=== PATIENT | female | born 1970 | race Caucasian/White ===

== ENCOUNTER 2016-11-01 15:30 | Emergency (ER) | payer MEDICAID ==
[~2016-11-01] VITALS: Ht 167.6 cm; Wt 59.0 kg
[~2016-11-01 15:30] MED LIST: MOTRIN800 MG PO; NOR10T PO; PREDNISONE20 MG PO; PROAIR HFA0.09 MG/A1 INH; ROBITUSSIN COU118 ML PO
[2016-11-01 17:04] VITALS: BP 98/62
== END 2016-11-01 20:01 | disposition home or self-care (01) ==
LOC: ED 15:30
DX: G43.909 Migraine, unspecified, not intractable, without status migrainosus (principal); T73.3XXA Exhaustion due to excessive exertion, initial encounter; X58.XXXA Exposure to other specified factors, initial encounter
CPT/HCPCS: J1200; J2765; J3490; J7030

== ENCOUNTER 2017-01-13 15:19 | Emergency (ER) | payer MEDICAID ==
[2017-01-13 15:30] VITALS: BP 113/73
== END 2017-01-13 18:06 | disposition home or self-care (01) ==
LOC: ED 15:19
DX: G44.209 Tension-type headache, unspecified, not intractable (principal); R07.9 Chest pain, unspecified; E78.00 Pure hypercholesterolemia, unspecified; Z88.2 Allergy status to sulfonamides; Z88.1 Allergy status to other antibiotic agents

== ENCOUNTER 2017-01-17 16:11 | Emergency (ER) | payer MEDICAID ==
[2017-01-17 18:07] LABS: BASOPHIL % 0.9 % (0-2); PLATELET COUNT 290 x10^3mcL (130-400); RED CELL DISTRIBUTION WIDTH 12.8 % (11.5-14.5)
[2017-01-17 18:26] LABS: CARBON DIOXIDE 30.3 mmol/L (21-32); CHLORIDE SERUM 100 mmol/L (98-107); CREATININE SERUM 0.6 mg/dL (0.6-1.0); GFR1 > 60 mL/min; GLUCOSE SERUM 114 mg/dL (74-106); POTASSIUM SERUM 3.5 mmol/L (3.5-5.1); SODIUM SERUM 136 mmol/L (136-145)
[2017-01-17 18:32] LABS: ALBUMIN 3.8 g/dL (3.4-5.0); ALKALINE PHOSPHATASE 64 U/L (46-116); ALT/SGPT 20 U/L (14-59); AST/SGOT 16 U/L (15-37); BILIRUBIN TOTAL 0.43 mg/dL (0.20-1.00)
[2017-01-17 19:40] VITALS: BP 107/69
== END 2017-01-17 19:40 | disposition home or self-care (01) ==
LOC: ED 16:11
PROVIDERS: Emergency Medicine
DX: G44.209 Tension-type headache, unspecified, not intractable (principal); J45.909 Unspecified asthma, uncomplicated; E78.00 Pure hypercholesterolemia, unspecified; Z88.2 Allergy status to sulfonamides; Z88.1 Allergy status to other antibiotic agents
CPT/HCPCS: 36415; J1170; J1200; J2765

== ENCOUNTER 2017-03-07 07:45 | Emergency (ER) | payer MEDICAID ==
[~2017-03-07] VITALS: Ht 167.6 cm; Wt 61.7 kg
[2017-03-07 08:05] VITALS: Ht 167.6 cm; Wt 61.7 kg
[2017-03-07 10:00] LABS: BASOPHIL % 0.8 % (0-2); PLATELET COUNT 248 x10^3mcL (130-400); RED CELL DISTRIBUTION WIDTH 12.7 % (11.5-14.5)
[2017-03-07 10:10] LABS: microscopic required? NO
[2017-03-07 10:24] LABS: urine erythrocyte NEGATIVE (NEGATIVE)
[2017-03-07 10:32] LABS: CALCIUM 8.8 mg/dL (8.5-10.1); CHLORIDE SERUM 101 mmol/L (98-107); CREATININE SERUM 0.6 mg/dL (0.6-1.0); GFR1 > 60 mL/min; GLUCOSE SERUM 95 mg/dL (74-106); POTASSIUM SERUM 3.6 mmol/L (3.5-5.1); SODIUM SERUM 138 mmol/L (136-145)
[2017-03-07 10:37] LABS: ALBUMIN 3.7 g/dL (3.4-5.0); ALKALINE PHOSPHATASE 73 U/L (46-116); ALT/SGPT 22 U/L (14-59); AST/SGOT 16 U/L (15-37); BILIRUBIN TOTAL 0.4 mg/dL (0.20-1.00); CHOLESTEROL 183 mg/dL (<200); CHOLESTEROL/HDL RATIO 3.6; HDL CHOLESTEROL 51 mg/dL (40-60); LIPASE 148 IU/L (73-393); TOTAL PROTEIN, SERUM 7.4 g/dL (6.4-8.2); TRIGLYCERIDES 70 mg/dL (<150)
[2017-03-07 11:01] LABS: T3 TOTAL 1.25 ng/mL
[2017-03-07 11:49] LABS: FREE T4 1.24 ng/dL (0.76-1.46); FREE THYROXINE INDEX 3.8 ug/dL (1.4-4.5); T4(THYROXINE) 11.8 ug/dL (4.7-13.3)
[2017-03-07 13:15] VITALS: BP 110/74
== END 2017-03-07 13:15 | disposition home or self-care (01) ==
LOC: ED 07:45
PROVIDERS: Specialist
DX: J01.90 Acute sinusitis, unspecified (principal); J40 Bronchitis, not specified as acute or chronic; M79.1 Myalgia; E78.00 Pure hypercholesterolemia, unspecified; Z88.1 Allergy status to other antibiotic agents
CPT/HCPCS: 83880; 84439; 87804; J1885; J2405; J2930; J3010; J7030; J7613; J7644; Q0092

== ENCOUNTER 2017-10-06 19:38 | Emergency (ER) | payer MEDICAID ==
[~2017-10-06] VITALS: Ht 165.1 cm; Wt 73.5 kg
[2017-10-06 19:55] VITALS: Ht 165.1 cm; Wt 73.5 kg
[2017-10-06 21:53] VITALS: BP 100/70
== END 2017-10-06 21:53 | disposition home or self-care (01) ==
LOC: ED 19:38
DX: M19.072 Primary osteoarthritis, left ankle and foot (principal); M19.071 Primary osteoarthritis, right ankle and foot; J45.909 Unspecified asthma, uncomplicated; E78.00 Pure hypercholesterolemia, unspecified; Z90.710 Acquired absence of both cervix and uterus; Z88.2 Allergy status to sulfonamides; Z88.8 Allergy status to other drugs, medicaments and biological substances

== ENCOUNTER 2017-11-23 11:59 | Emergency (ER) | payer MEDICAID ==
[~2017-11-23] VITALS: Ht 167.6 cm; Wt 69.9 kg
[2017-11-23 12:04] VITALS: Ht 167.6 cm; Wt 69.9 kg
[2017-11-23 15:08] VITALS: BP 102/76
== END 2017-11-23 15:08 | disposition home or self-care (01) ==
LOC: ED 11:59
DX: G43.909 Migraine, unspecified, not intractable, without status migrainosus (principal); J45.909 Unspecified asthma, uncomplicated; E78.00 Pure hypercholesterolemia, unspecified; Z90.710 Acquired absence of both cervix and uterus; Z88.2 Allergy status to sulfonamides; Z88.1 Allergy status to other antibiotic agents
CPT/HCPCS: J1885; J2765; J7030

== ENCOUNTER 2018-05-29 20:38 | Emergency (ER) | payer MEDICAID ==
[~2018-05-29] VITALS: Ht 170.2 cm; Wt 73.9 kg
[2018-05-29 20:56] VITALS: Ht 170.2 cm; Wt 73.9 kg
[2018-05-29 21:58] VITALS: BP 102/72
== END 2018-05-29 21:58 | disposition home or self-care (01) ==
LOC: ED 20:38
DX: H60.91 Unspecified otitis externa, right ear (principal); J45.909 Unspecified asthma, uncomplicated; I10 Essential (primary) hypertension; E78.00 Pure hypercholesterolemia, unspecified; Z90.710 Acquired absence of both cervix and uterus; Z88.1 Allergy status to other antibiotic agents; Z88.2 Allergy status to sulfonamides

== ENCOUNTER 2018-11-01 05:48 | Emergency (ER) | payer MEDICAID ==
[~2018-11-01] VITALS: Ht 167.6 cm; Wt 71.8 kg
[2018-11-01 05:52] VITALS: Ht 167.6 cm; Wt 71.8 kg
[2018-11-01 08:00] VITALS: BP 116/79
== END 2018-11-01 08:01 | disposition home or self-care (01) ==
LOC: ED 05:48
DX: R51 Headache (principal); R11.0 Nausea; I10 Essential (primary) hypertension; J45.909 Unspecified asthma, uncomplicated; Z90.710 Acquired absence of both cervix and uterus; Z88.1 Allergy status to other antibiotic agents; Z88.2 Allergy status to sulfonamides
CPT/HCPCS: J1885; J2765; J7030

== ENCOUNTER 2019-03-11 09:33 | Emergency (ER) | payer MEDICAID ==
[~2019-03-11] VITALS: Ht 162.6 cm; Wt 70.3 kg
[2019-03-11 09:42] VITALS: Ht 162.6 cm; Wt 70.3 kg
[2019-03-11 11:56] LABS: PLATELET COUNT 208 x10^3mcL (130-400); RED CELL DISTRIBUTION WIDTH 13.6 % (11.5-14.5)
[2019-03-11 12:59] LABS: CALCIUM 8.9 mg/dL (8.5-10.1); CARBON DIOXIDE 27.7 mmol/L (21-32); CHLORIDE SERUM 100 mmol/L (98-107); CREATININE SERUM 0.7 mg/dL (0.6-1.0); GFR1 > 60 mL/min; GLUCOSE SERUM 91 mg/dL (74-106); POTASSIUM SERUM 3.5 mmol/L (3.5-5.1); SODIUM SERUM 135 mmol/L (136-145)
[2019-03-11 13:04] LABS: ALBUMIN 3.6 g/dL (3.4-5.0); ALKALINE PHOSPHATASE 58 U/L (46-116); ALT/SGPT 32 U/L (14-59); AST/SGOT 26 U/L (15-37); BILIRUBIN TOTAL 0.4 mg/dL (0.20-1.00); TOTAL PROTEIN, SERUM 6.8 g/dL (6.4-8.2)
[2019-03-11 14:13] VITALS: BP 92/59
== END 2019-03-11 13:50 | disposition home or self-care (01) ==
LOC: ED 09:33
PROVIDERS: Student in an Organized Health Care Education/Training Program
DX: B34.9 Viral infection, unspecified (principal); J45.909 Unspecified asthma, uncomplicated; I10 Essential (primary) hypertension; E78.00 Pure hypercholesterolemia, unspecified; Z98.890 Other specified postprocedural states; Z88.2 Allergy status to sulfonamides
CPT/HCPCS: 36415; J1885; Q0092

== ENCOUNTER 2019-07-29 10:05 | Emergency (ER) | payer MEDICAID ==
[~2019-07-29] VITALS: Ht 167.6 cm; Wt 71.2 kg
[2019-07-29 10:12] VITALS: Ht 167.6 cm; Wt 71.2 kg
[2019-07-29 12:10] VITALS: BP 101/57
== END 2019-07-29 12:10 | disposition home or self-care (01) ==
LOC: ED 10:05
DX: G44.209 Tension-type headache, unspecified, not intractable (principal); R11.2 Nausea with vomiting, unspecified; J45.909 Unspecified asthma, uncomplicated; I10 Essential (primary) hypertension; E78.00 Pure hypercholesterolemia, unspecified; Z90.710 Acquired absence of both cervix and uterus; Z98.890 Other specified postprocedural states; Z88.2 Allergy status to sulfonamides; Z88.1 Allergy status to other antibiotic agents
CPT/HCPCS: J1885; J2765; J7030

== ENCOUNTER 2019-12-06 12:13 | Emergency (ER) | payer MEDICAID ==
[~2019-12-06] VITALS: Ht 167.6 cm; Wt 70.3 kg
[2019-12-06 13:19] VITALS: Ht 167.6 cm; Wt 70.3 kg
[2019-12-06 15:21] LABS: microscopic required? NO
[2019-12-06 15:32] LABS: UA SPECIFIC GRAVITY <=1.005 (1.005-1.035); urine erythrocyte NEGATIVE (NEGATIVE)
[2019-12-06 16:39] VITALS: BP 115/75
== END 2019-12-06 16:39 | disposition home or self-care (01) ==
LOC: ED 12:13
PROVIDERS: Emergency Medicine
DX: M54.5 Low back pain (principal); G43.909 Migraine, unspecified, not intractable, without status migrainosus; J45.909 Unspecified asthma, uncomplicated; I10 Essential (primary) hypertension; E78.00 Pure hypercholesterolemia, unspecified; Z98.890 Other specified postprocedural states; Z90.710 Acquired absence of both cervix and uterus; Z88.1 Allergy status to other antibiotic agents; Z88.2 Allergy status to sulfonamides
CPT/HCPCS: 82962; J1885

== ENCOUNTER 2020-01-22 10:40 | Emergency (ER) | payer MEDICAID, SELFPAY ==
[~2020-01-22] VITALS: Ht 167.6 cm; Wt 70.8 kg
[2020-01-22 10:42] VITALS: Ht 167.6 cm; Wt 70.8 kg
[2020-01-22 12:03] LABS: BASOPHIL % 0.8 % (0-2); PLATELET COUNT 261 x10^3mcL (130-400); RED CELL DISTRIBUTION WIDTH 12.5 % (11.5-14.5)
[2020-01-22 12:23] LABS: CALCIUM 8.9 mg/dL (8.5-10.1); CARBON DIOXIDE 30.5 mmol/L (21-32); CHLORIDE SERUM 105 mmol/L (98-107); CREATININE SERUM 0.6 mg/dL (0.6-1.0); GFR1 > 60 mL/min; GLUCOSE SERUM 85 mg/dL (74-106); POTASSIUM SERUM 3.7 mmol/L (3.5-5.1); SODIUM SERUM 141 mmol/L (136-145)
[2020-01-22 12:28] LABS: ALBUMIN 3.6 g/dL (3.4-5.0); ALKALINE PHOSPHATASE 69 U/L (46-116); ALT/SGPT 21 U/L (14-59); AST/SGOT 13 U/L (15-37); BILIRUBIN TOTAL 0.5 mg/dL (0.20-1.00); TOTAL PROTEIN, SERUM 6.7 g/dL (6.4-8.2)
[2020-01-22 12:41] LABS: microscopic required? YES; urine erythrocyte TRACE (NEGATIVE)
[2020-01-22 14:37] VITALS: BP 112/74
== END 2020-01-22 14:37 | disposition home or self-care (01) ==
LOC: ED 10:40
PROVIDERS: Emergency Medicine
DX: F41.9 Anxiety disorder, unspecified (principal); Z20.828 Contact with and (suspected) exposure to other viral communicable diseases
CPT/HCPCS: 85378; U0003